=== PATIENT | female | born 1995 | race African-American/Black ===

== ENCOUNTER 2016-07-13 17:12 | Observation (INO) ==
--- NOTE | 2016-07-13 17:46 | Emergency Department Note ---
Arrival - Arrival Chief Complaint: Psychiatric Stated Complaint: [facility] ED Nursing Triage Note: pt drank bleach a very small amount on the 23. pt has had n/v since. pt has been cutting her lt arm with a shaving razor on the th also. when asked if pt want to harm slef pt states "it would not hurt". pt was told to come to er by someone at work due to them seeing cuts to arm. pt states she lost a child when she was 8 months and has been depressed. Mode of Arrival: Ambulatory Limitations: No Limitations Source: Patient, Significant other Time Seen by Provider: 07/13/16 17:42 - History of Present Illness HPI Narrative: This 20-year-old black female presents 4 days after her first episode of cutting herself. This follows 4-5 years of persistent depression, spontaneous sobbing, decreased appetite, and chronic insomnia. The patient has never been treated or hospitalized for depression nor for any suicidal attempts. The patient at one time several years ago felt like taking her own life but currently she is more depressed and angry and wishing to harm someone else rather than herself. She states situations have escalated dramatically over the last several months since losing her child at the eighth month. Beyond her angry depressed emotional outlook she likewise has problems with both auditory and visual hallucinations. This has been going on she states since the very inception of her problem. She denies any significant illicit drug use or alcohol abuse and currently she is on no medications. At the moment she states she does not feel like doing herself any harm including any further cutting. Onset (ago): year(s) (patient presents 5 years post-onset of symptoms) Date of Last Menstrual Period: now Allergies/Adverse Reactions: Allergies Allergy/AdvReac Type Severity Reaction Status Date / Time No Known Allergies Allergy Unverified 12/01/14 15:39 Home Medications: Home Medications Medication Instructions Recorded Confirmed Type No Known Home Medications [No 07/13/16 07/13/16 History Known Home Medications] Review of System - Review of System 12 point system: reviewed and no additional remarkable complaints except as stated - Review of System Constitutional: Present: as per HPI Psychiatric: Present: as per HPI Medical,Surgical,& Family Hx - Family History Family History: Reports;: Family Hypertension - Social History Smoking Status: Never smoker Frequency of Alcohol Use: None Type of Drug Use: None Exam Physical Examination: GENERAL: Well developed, well nourished black female in no acute distress. HEENT: Normocephalic. No trauma. Moist mucous membranes. EOMI. PERRLA. NECK: Supple. No adenopathy. CARDIAC: Regular. No murmurs. CHEST: Clear to auscultation. No respiratory distress. ABDOMEN: Soft. Nontender. Active bowel sounds. EXTREMITIES: No trauma. Normal ROM. No pedal edema. SKIN: No diaphoresis. No rash. NEURO: Alert. Oriented 3. Flat affect. I contact avoidance. Motor, sensory , vibratory intact. No focal deficits. Vital Signs: Vital Signs Temperature 97.7 F 07/13/16 17:15 Pulse Rate 95 H 07/13/16 20:01 Respiratory Rate 18 07/13/16 20:01 Blood Pressure 130/79 07/13/16 20:01 O2 Sat by Pulse Oximetry 100 07/13/16 20:01 Course - Reevaluation(s) Reevaluation #1: Discussed with patient the need for [facility] counseling for her depression. Reevaluation #2: After working through arrangements with [facility] the patient's family did not want to go to [place] and in fact they wanted to go home. They were informed that medically legally that would not be possible and the patient would have to be admitted and observed in the ICU. Ultimately they resolved to have her admitted here for further consultation with [facility] when a bed is available. - Consultations Consultation #1: Discussed with [facility] counselors who felt the patient badly needed hospitalization; however, they did not have a female bed and advised contacting [facility] in [place]. Consultation #2: Discussed with Dr. Dong, hospitalist, who will admit for further evaluation treatment. Results - Labs CBC & BMP: 07/13/16 17:40 07/13/16 17:40 Labs: I have reviewed the laboratory and noted the gross normalcy excepting for the depressed potassium - Diagnostic Findings Procedure: Chest x-ray: image reviewed by me, report reviewed by me (normal chest) Disposition Clinical Impression: severe depression Case discussed with: patient, patient's family Condition: Guarded Time of Disposition: 21:59
[2016-07-13 18:01] LABS: Basophils % 0.3 % (0.0-0.8); Eosinophils # 0.1 10*3/uL (0.0-0.87); Eosinophils % 0.6 % (0.00-10.9); Hematocrit 40.3 VOL% (35.7-47.0); Hemoglobin 13.8 GM/DL (12.0-16.0); Immature Granulocytes % 0.3 %; Immature Granulocytes Absolute 0.03 #; Lymphocytes # 2.9 10*3/uL (1.4-4.0); Lymphocytes % 24.7 % (21.3-54.2); Mean Corpuscular HGB Conc 34.2 GM/DL (32-36); Mean Corpuscular Hemoglobin 30 PG (27-34); Mean Corpuscular Volume 88.6 FL (87-102); Mean Platelet Volume 9.6 FL (9.6-12.0); Monocytes # 0.8 10*3/uL (0.11-0.8); Monocytes % 6.6 % (1.7-12.7); Neutrophils # 7.9 10*3/uL (1.4-7.4); Neutrophils % 67.5 % (38.7-73.9); Platelet Count 251 T/CUMM (130-400); Red Blood Count 4.55 MC/CUMM (3.8-5.5); Red Cell Distribution Width 11.9 % (9.3-17.3); White Blood Count 11.7 T/CUMM (4-12)
[2016-07-13 18:13] LABS: Barbiturates Screen,Urine Negative (Negative); Benzodiazepines Screen,Urine Negative (Negative); Cannabinoid Screen,Urine Negative (Negative); Opiate Screen,Urine Negative (Negative); Phencyclidine Screen,Urine Negative (Negative)
[2016-07-13 18:28] LABS: Alanine Aminotransferase 16 U/L (13-56); Alkaline Phosphatase 78 U/L (45-117); Aspartate Amino Transferase 8 U/L (0-37); Blood Urea Nitrogen 6 MG/DL (7-18); Calcium 9.4 MG/DL (8.5-10.1); Glucose 100 MG/DL (74-106); Potassium 3.1 MMOL/L (3.5-5.1); Sodium 143 MMOL/L (136-145); Total Protein 7.8 G/DL (6.4-8.3)
[2016-07-13] MEDS ORDERED: POTASSIUM BICARB EFFERVESCENT 25 MEQ TABLET PO ONE ×2 (18:56→19:04)
--- NOTE | 2016-07-13 19:12 | XRay Report ---
Exam: Chest 2 views Date: July 13, 2016 at 6:37 PM Comparison: None Reason: Shortness of breath Findings: The cardiac silhouette is normal in size. No focal consolidation, pneumothorax or pleural effusion is identified. No acute osseous process is seen. Impression: No acute cardiopulmonary process is identified. PROCEDURE INTERPRETED AT [facility] DEPARTMENT OF RADIOLOGY Final Report Signed by: Dr. Edouard Mayberry
[2016-07-13 21:27] LABS: Apearance,Urine CLOUDY (Clear); Bilirubin,Urine Negative (Negative); Blood, Urine Large mg/dL (Negative); Glucose,Urine (UA) Negative (Negative); Ketones,Urine 80 mg/dL (Negative); Mucus,Urine Many /LPF (Occasional); Nitrite,Urine Negative (Negative); Protein,Urine 100 MG/DL; RBC,Urine 862 /HPF (0-4); Squamous Epithelial Cell,Urine Occasional /HPF (0-10); Urine Color Dark yellow (Yellow); Urine Specific Gravity 1.033 (1.001-1.035); WBC,Urine 25 /HPF (0-6)
--- NOTE | 2016-07-13 22:27 | Hospitalist History & Physical ---
Assessment and Plan (1) Self mutilating behavior Status: Acute Current Visit: Yes (2) Depression Status: Acute Current Visit: Yes (3) Auditory hallucinations Status: Acute Current Visit: Yes (4) Visual hallucination Status: Acute Current Visit: Yes (5) Suicidal ideation Status: Acute Current Visit: Yes (6) Urinary tract infection Status: Acute Assessment and plan: Plan for this patient. We will admit her with close 1 on 1 observation. Consult social media analyst and have [place] reevaluate her tomorrow. Current Visit: No History of Present Illness Chief complaint: suicidal ideation History of present illness: Ms. Taylor is a 20 year old female who claims no past medical history presents to our ER [facility]. Apparently patient deals with stress by cutting herself. She uses her left forearm. It appears that she is cut herself many times. Apparently at work somebody had noticed her arm and asked that she needed to talk with somebody. She said that she thought she did. And they've recommended that she be brought up to the nearest hospital. Patient was seen by [facility] and they recommended hospitalization for this patient. They currently do not have any beds and there was a bit secured at site [place] the patient and family refused to go there. According to the ER H&P patient at one time felt like taking her own life but currently he is more depressed and angry wishing to harm someone else rather than herself. She had told them that the situation have escalated dramatically over the last several months after losing her child and eighth month of . She likewise has problems with both on and visual hallucinations. She is currently on no medications and denies any alcohol or drug abuse. Home Medications Medication Instructions Recorded Confirmed Type No Known Home Medications [No 07/13/16 07/13/16 History Known Home Medications] Allergies Allergy/AdvReac Type Severity Reaction Status Date / Time No Known Allergies Allergy Unverified 12/01/14 15:39 Medical,Surgical,& Family Hx - Medical History Psychological: History of: Psychiatric Problems - Surgical History Additional Surgical History: None - Family History Family History: Reports;: Family Hypertension - Social History Smoking Status: Never smoker Frequency of Alcohol Use: None Type of Drug Use: None 12 point system: reviewed and no additional remarkable complaints except as stated Exam - Constitutional Vitals: Period Temp Pulse Resp BP Sys/Palmer Pulse Ox Last 24 Hr 97.7 F 62-95 16-18 111-139/72-90 94-100 General appearance: over weight - Head Head exam: Present: normal inspection - Eye Eye exam: Present: EOMI Pupils: Present: CAMILO - ENT ENT exam: Present: normal exam - Neck Neck exam: Present: normal inspection - Respiratory Respiratory exam: Present: clear to auscultation bilaterally - Cardiovascular Cardiovascular exam: Present: regular rate and rhythm - GI/Abdominal GI/Abdominal exam: Present: normal bowel sounds - Extremities Exam Extremities exam: Present: other (she has multiple cuts on her forearm) - Back Exam Back exam: Present: normal inspection Results - Labs CBC & BMP: 07/13/16 17:40 07/13/16 17:40
[2016-07-13] MEDS ORDERED: ZALEPLON 5 MG CAPSULE PO PRN (22:48)
[2016-07-13] MEDS ORDERED: ONDANSETRON 4 MG/2 ML VIAL IV PRN (22:48)
[2016-07-13] MEDS ORDERED: LEVOFLOXACIN 250 MG TABLET PO SCH (23:00)
[2016-07-14 08:43] LABS: Calcium 8.9 MG/DL (8.5-10.1); Osmolality,Calculated 283.8 MOS/KG (273-304); Potassium 3.7 MMOL/L (3.5-5.1)
[2016-07-14] MEDS ORDERED: PANTOPRAZOLE 40 MG TABLET PO SCH (09:00)
--- NOTE | 2016-07-14 09:14 | Hospitalist Progress Note ---
Assessment and Plan (1) Suicidal ideation Status: Acute Assessment and plan: to [facility] when bed available. Until then, continue in ICU with 1;1 obs. Current Visit: Yes (2) Self mutilating behavior Status: Acute Current Visit: Yes (3) Auditory hallucinations Status: Acute Current Visit: Yes (4) Visual hallucination Status: Acute Current Visit: Yes Hospitalist: Subjective Interval history: Ms Taylor is feeling ok this morning. [facility] to return to evaluate if needed- she was not transferred yesterday because they did not have bed. Hoping for transfer today. Nurse does not know when 72hour hold started. Exam - Constitutional Vitals: Period Temp Pulse Resp BP Sys/Palmer Pulse Ox Last 24 Hr 98.2 F-98.7 F 55-94 14-25 103-118/62-101 98-100 General appearance: normal weight, no acute distress - Respiratory Respiratory exam: Present: clear to auscultation bilaterally - Cardiovascular Cardiovascular exam: Present: regular rate and rhythm - GI/Abdominal GI/Abdominal exam: Present: normal bowel sounds, soft. Absent: tenderness - Extremities Exam Extremities exam: Absent: edema Results - Labs CBC & BMP: 07/13/16 17:40 07/14/16 08:01
--- NOTE | 2016-07-14 14:04 | Discharge Summary ---
Hospital Course - Hospital Course Hospital Course: Ms Tayolr was admitted with suicidal ideation and attempt. She was having hallucinations. She is accepted to [facility] today and will be transferred. Diagnosis - Discharge Diagnosis (1) Suicidal ideation Status: Acute (2) Self mutilating behavior Status: Acute (3) Auditory hallucinations Status: Acute (4) Visual hallucination Status: Acute Discharge Plan - Discharge Data Disposition: Disch/Xfer to Psych Hos Condition at Discharge: Stable Discharge Diet: regular diet Activity: resume usual activities as tolerated - Discharge Medications New Levofloxacin Tab [Levaquin Tab] 250 mg PO Q24H #3 tablet - Follow Up or Referral - Forms/Instructions Exam - Constitutional Vitals: Period Temp Pulse Resp BP Sys/Palmer Pulse Ox Last 24 Hr 98.1 F-98.7 F 55-94 14-25 82-118/48-101 98-100 General appearance: normal weight, no acute distress - Head Head exam: Present: normocephalic, atraumatic - Eye Eye exam: Present: EOMI. Absent: scleral icterus - Respiratory Respiratory exam: Present: clear to auscultation bilaterally - Cardiovascular Cardiovascular exam: Present: regular rate and rhythm - GI/Abdominal GI/Abdominal exam: Present: normal bowel sounds, soft. Absent: tenderness Discharge Results Labs on day of discharge: Labs from last 24 hours 07/14/16 08:01 Sodium 144 Potassium 3.7 Chloride 108 H Carbon Dioxide 29 Anion Gap 10.7 BUN 6 L Creatinine 0.60 GFR Calculation 146 BUN/Creatinine Ratio 10.00 Glucose 97 Calculated Osmolality 283.8 Calcium 8.9 Preliminary micro results at discharge 07/13/16 Unknown Urine Culture - Preliminary Urine,Voided No Growth at 12 hours. DS: Provider Date of admission: 07/13/16 22:37 Primary care physician: . No PCP Attending physician on admission: Kalina Garcia MD Consults: 07/13/16 22:52 Consult to Case Mgmt/Social Srvs [CONS] Routine Reason for Case Mgmt/Social Srvs: Psychiatric Management 07/14/16 00:38 Consult to Dietitian [CONS] Routine Reason for Dietitian: Diet Instruction Discharging clinician: Kalina Garcia MD
[2016-07-14 20:14] VITALS: BP 100/65
== END 2016-07-14 20:25 ==
LOC: N.EDINP 17:12 → N.ED 17:12 → N.CC 23:13
PROVIDERS: ADMIT Internal Medicine; ATTEND Internal Medicine

== ENCOUNTER 2021-04-03 03:14 | Inpatient (IN) ==
[2021-04-03 04:01] LABS: Basophils % 0.2 % (0.0-0.8); Eosinophils # 0.1 10*3/uL (0.0-0.87); Hematocrit 28.9 VOL% (35.7-47.0); Hemoglobin 9.3 GM/DL (12.0-16.0); Immature Granulocytes % 1.1 %; Immature Granulocytes Absolute 0.09 #; Lymphocytes # 1.9 10*3/uL (1.4-4.0); Lymphocytes % 22.6 % (21.3-54.2); Mean Corpuscular HGB Conc 32.2 GM/DL (32-36); Mean Corpuscular Volume 88.1 FL (87-102); Mean Platelet Volume 9.6 FL (9.6-12.0); Monocytes % 11.1 % (1.7-12.7); NRBC # 0.02 10*3/uL; Platelet Count 167 T/CUMM (130-400); Red Blood Count 3.28 MC/CUMM (3.8-5.5); Red Cell Distribution Width 13.1 % (9.3-17.3); White Blood Count 8.2 T/CUMM (4-12)
[2021-04-03] MEDS: LACTATED RINGERS 1,000 ML IV SCH ×3 (05:17→16:13)
[2021-04-03] MEDS ORDERED: CITRIC ACID/SODIUM CITRATE 30 ML UDCUP PO ONE (06:00)
[2021-04-03] MEDS ORDERED: FAMOTIDINE 20 MG/2 ML VIAL IV ONE (06:00)
[2021-04-03] MEDS ORDERED: BUPIVACAINE SPINAL 0.75% 2 ML AMP SPINAL ONE (06:51)
[2021-04-03] MEDS ORDERED: TRANEXAMIC ACID 1,000 MG/10 ML VIAL ONE (07:25)
[2021-04-03] MEDS ORDERED: miSOPROStoL 200 MCG TABLET ONE (07:25)
[2021-04-03] MEDS ORDERED: CARBOPROST TROMETHAMINE 250 MCG/ML AMP IM ONE (07:26)
[2021-04-03] MEDS ORDERED: METHYLERGONOVINE 0.2 MG/1 ML AMP ONE (07:26)
[2021-04-03] MEDS ORDERED: OXYTOCIN/LR 20 UNIT/1,000 ML BAG IV ONE ×3 (07:27→08:49)
[2021-04-03] MEDS ORDERED: ceFAZolin 3,000 MG in SYRINGE 15 EACH IV ONE (07:30)
[2021-04-03] MEDS ORDERED: PHENYLEPHRINE 1 MG/10 ML SYRINGE IV ONE (07:49)
[2021-04-03] MEDS ORDERED: ONDANSETRON 4 MG/2 ML VIAL ONE (07:50)
[2021-04-03] MEDS ORDERED: LACTATED RINGERS 1,000 ML IV ONE (07:50)
[2021-04-03] MEDS ORDERED: KETOROLAC 30 MG/1 ML VIAL ONE (08:15)
[2021-04-03] MEDS ORDERED: ACETAMINOPHEN INJ 1,000 MG/100 ML VIAL IV ONE (08:15)
[2021-04-03 08:28] LABS: Cord Arterial Blood HCO3 20.9 MMOL/L
[2021-04-03 08:29] LABS: Cord Venous Blood HCO3 23.7 MMOL/L; Cord Venous Blood PCO2 41.1 MMHG; Cord Venous Blood PO2 26.1 MMHG
[2021-04-03 08:32] LABS: Bacteria,Urine Occasional /HPF (Few); Bilirubin,Urine Negative (Negative); Blood, Urine Negative (Negative); Glucose,Urine (UA) Negative (Negative); Ketones,Urine Negative (Negative); Mucus,Urine Occasional /LPF (Occasional); Nitrite,Urine Negative (Negative); Protein,Urine Negative; Squamous Epithelial Cell,Urine Occasional /HPF (0-10); Urine Appearance CLEAR (Clear); Urine Color Straw (Yellow); Urine Specific Gravity 1.008 (1.001-1.035); Urine Urobilinogen < 2.0 EU/DL (0.2-1.0)
[2021-04-03 08:33] LABS: Cord Venous Blood HCO3 24.2 MMOL/L; Cord Venous Blood PCO2 43.7 MMHG; Cord Venous Blood PO2 24.3 MMHG
[2021-04-03] MEDS ORDERED: RHO(D) IMMUNE GLOBULIN 300 MCG SYRINGE IM ONE (08:49)
[2021-04-03] MEDS ORDERED: SIMETHICONE CHEW 80 MG TABLET PO PRN (08:49)
[2021-04-03] MEDS ORDERED: ONDANSETRON 4 MG/2 ML VIAL IV PRN (08:49)
[2021-04-03] MEDS ORDERED: ACETAMINOPHEN 325 MG TABLET PO PRN (08:49)
[2021-04-03] MEDS ORDERED: LACTATED RINGERS 1,000 ML IV SCH (09:00)
[2021-04-03] MEDS: DOCUSATE SODIUM 100 MG CAPSULE PO SCH ×2 (10:14→20:29)
[2021-04-03] MEDS: MULTIVITAMIN (PRENATAL) TABLET PO SCH (10:14)
[2021-04-03] MEDS ORDERED: diphenhydrAMINE CAP 25 MG CAPSULE ONE (12:41)
[2021-04-03] MEDS: diphenhydrAMINE CAP 25 MG CAPSULE PO PRN ×2 (12:44→17:18)
[2021-04-03] MEDS: ACETAMINOPHEN 500 MG TABLET PO SCH ×2 (13:57→20:31)
[2021-04-03] MEDS: KETOROLAC 30 MG/1 ML VIAL IV SCH ×2 (14:02→20:29)
[2021-04-03 15:54] LABS: Hematocrit 18.7 VOL% (35.7-47.0); Mean Corpuscular HGB Conc 31.6 GM/DL (32-36); Mean Corpuscular Volume 88.2 FL (87-102); Mean Platelet Volume 10.1 FL (9.6-12.0); Platelet Count 128 T/CUMM (130-400); Red Blood Count 2.12 MC/CUMM (3.8-5.5); White Blood Count 8.8 T/CUMM (4-12)
[2021-04-03 15:55] LABS: Basophils % 0.1 % (0.0-0.8); Eosinophils % 0.5 % (0.00-10.9); Immature Granulocytes % 0.7 %; Immature Granulocytes Absolute 0.06 #; Lymphocytes # 1.4 10*3/uL (1.4-4.0); Lymphocytes % 15.5 % (21.3-54.2); Monocytes % 9.4 % (1.7-12.7); Neutrophils % 73.8 % (38.7-73.9)
[2021-04-03 15:57] LABS: Hemoglobin 5.9 GM/DL (12.0-16.0)
[2021-04-03 17:16] LABS: Hematocrit 26.2 VOL% (35.7-47.0); Hemoglobin 8.3 GM/DL (12.0-16.0)
[2021-04-04] MEDS: KETOROLAC 30 MG/1 ML VIAL IV SCH (02:26)
[2021-04-04] MEDS: ACETAMINOPHEN 500 MG TABLET PO SCH (02:27)
[2021-04-04 06:02] LABS: Basophils % 0.2 % (0.0-0.8); Eosinophils # 0.1 10*3/uL (0.0-0.87); Eosinophils % 0.7 % (0.00-10.9); Hemoglobin 8.6 GM/DL (12.0-16.0); Immature Granulocytes % 0.6 %; Immature Granulocytes Absolute 0.06 #; Lymphocytes # 1.8 10*3/uL (1.4-4.0); Lymphocytes % 16.8 % (21.3-54.2); Mean Corpuscular HGB Conc 33.1 GM/DL (32-36); Mean Corpuscular Volume 86.7 FL (87-102); Mean Platelet Volume 10.4 FL (9.6-12.0); Monocytes % 9.4 % (1.7-12.7); Neutrophils % 72.3 % (38.7-73.9); Platelet Count 154 T/CUMM (130-400); Red Cell Distribution Width 13.1 % (9.3-17.3); White Blood Count 10.6 T/CUMM (4-12)
[2021-04-04] MEDS: MULTIVITAMIN (PRENATAL) TABLET PO SCH (08:53)
[2021-04-04] MEDS: DOCUSATE SODIUM 100 MG CAPSULE PO SCH ×2 (08:53→20:53)
[2021-04-04] MEDS: MAGNESIUM HYDROXIDE SUSP 30 ML UDCUP PO PRN (08:53)
[2021-04-04] MEDS: IBUPROFEN 800 MG TABLET PO PRN (12:48)
[2021-04-04] MEDS: oxyCODONE/ACETAMINOPHEN 5-325 MG TABLET PO PRN (20:55)
[2021-04-05] MEDS: IBUPROFEN 800 MG TABLET PO PRN ×3 (03:36→18:36)
[2021-04-05] MEDS: oxyCODONE/ACETAMINOPHEN 5-325 MG TABLET PO PRN ×2 (03:36→20:20)
[2021-04-05] MEDS: MAGNESIUM HYDROXIDE SUSP 30 ML UDCUP PO PRN ×2 (09:10→20:24)
[2021-04-05] MEDS: MULTIVITAMIN (PRENATAL) TABLET PO SCH (09:10)
[2021-04-05] MEDS: DOCUSATE SODIUM 100 MG CAPSULE PO SCH ×2 (09:10→20:20)
[2021-04-05] MEDS: FERROUS SULFATE 325 MG TABLET PO SCH (20:20)
[2021-04-06] MEDS: IBUPROFEN 800 MG TABLET PO PRN (04:01)
[2021-04-06] MEDS: FERROUS SULFATE 325 MG TABLET PO SCH (08:01)
[2021-04-06] MEDS: DOCUSATE SODIUM 100 MG CAPSULE PO SCH (08:32)
[2021-04-06] MEDS: MULTIVITAMIN (PRENATAL) TABLET PO SCH (08:32)
[2021-04-06 09:11] VITALS: BP 127/66
== END 2021-04-06 12:20 | disposition home or self-care (01) | DRG 540 ==
LOC: N.LD 03:14 → N.OB 11:28
PROVIDERS: ADMIT Obstetrics & Gynecology; ATTEND Obstetrics & Gynecology
PROC: LDCSECT (ICD-10-PCS; 2021-04-03 07:20)

== ENCOUNTER 2022-06-23 04:50 | Inpatient (IN) ==
[2022-06-23] MEDS ORDERED: CITRIC ACID/SODIUM CITRATE 30 ML UDCUP PO ONE (05:07)
[2022-06-23] MEDS ORDERED: LACTATED RINGERS 500 ML IV PRN (05:07)
[2022-06-23] MEDS ORDERED: TRANEXAMIC ACID 1,000 MG in SODIUM CHLORIDE 0.9% 100 ML IV PRN (05:07)
[2022-06-23] MEDS ORDERED: METHYLERGONOVINE 0.2 MG/1 ML AMP IM PRN (05:07)
[2022-06-23] MEDS ORDERED: CARBOPROST TROMETHAMINE 250 MCG/ML AMP IM PRN (05:07)
[2022-06-23] MEDS ORDERED: miSOPROStoL 200 MCG TABLET RECTAL PRN (05:07)
[2022-06-23] MEDS ORDERED: FAMOTIDINE 20 MG/2 ML VIAL IV ONE (05:07)
[2022-06-23] MEDS ORDERED: OXYTOCIN/LR 20 UNIT/1,000 ML BAG IV ONE ×3 (05:07→12:10)
[2022-06-23] MEDS ORDERED: ONDANSETRON 4 MG/2 ML VIAL IV PRN ×2 (05:07→12:10)
[2022-06-23 05:41] LABS: Basophils % 0.3 % (0.0-0.8); Eosinophils # 0.3 10*3/uL (0.0-0.87); Eosinophils % 3.4 % (0.00-10.9); Hemoglobin 8.8 GM/DL (12.0-16.0); Immature Granulocytes % 0.4 %; Immature Granulocytes Absolute 0.03 #; Lymphocytes # 1.8 10*3/uL (1.4-4.0); Mean Corpuscular HGB Conc 32.6 GM/DL (32-36); Mean Corpuscular Volume 85.4 FL (87-102); Mean Platelet Volume 10.4 FL (9.6-12.0); Monocytes # 0.8 10*3/uL (0.11-0.8); Monocytes % 9.9 % (1.7-12.7); Platelet Count 175 T/CUMM (130-400); Red Blood Count 3.16 MC/CUMM (3.8-5.5); Red Cell Distribution Width 14.1 % (9.3-17.3)
[2022-06-23] MEDS ORDERED: LACTATED RINGERS 1,000 ML IV ONE (05:47)
[2022-06-23] MEDS ORDERED: buprenorphine HCL 0.3 MG/ML VIAL ONE (06:45)
[2022-06-23] MEDS: LACTATED RINGERS 1,000 ML IV PRN ×2 (06:54→20:00)
[2022-06-23 06:55] LABS: Hepatitis B Surface Ab Result Non-Reactive (NonReactive)
[2022-06-23] MEDS ORDERED: ceFAZolin 3,000 MG in SYRINGE 1 EACH IV ONE (07:00)
[2022-06-23] MEDS ORDERED: ONDANSETRON 4 MG/2 ML VIAL ONE (07:09)
[2022-06-23] MEDS ORDERED: KETOROLAC 30 MG/1 ML VIAL ONE (07:09)
[2022-06-23] MEDS ORDERED: METOCLOPRAMIDE 10 MG/2 ML VIAL ONE (07:10)
[2022-06-23] MEDS ORDERED: PHENYLEPHRINE 1 MG/10 ML SYRINGE IV ONE (07:44)
[2022-06-23] MEDS ORDERED: MIDAZOLAM 2 MG/2 ML VIAL ONE (07:57)
[2022-06-23 08:11] LABS: Mucus,Urine Occasional /LPF (Occasional); Protein,Urine 7.5 mg/dL (Negative); RBC,Urine <1 /HPF (0-4); Squamous Epithelial Cell,Urine Occasional /HPF (0-10); Urine Appearance Clear (Clear); Urine Color Yellow (Yellow); Urine pH 7.5 (4.5-8.0)
[2022-06-23 08:12] LABS: Bilirubin,Urine Negative (Negative); Blood, Urine Negative (Negative); Glucose,Urine (UA) Negative (Negative); Ketones,Urine Negative (Negative); Nitrite,Urine Negative (Negative)
[2022-06-23 08:14] LABS: Cord Arterial Blood HCO3 21.9 MMOL/L
[2022-06-23 08:18] LABS: Cord Venous Blood HCO3 22.5 MMOL/L; Cord Venous Blood PO2 26.9
[2022-06-23] MEDS ORDERED: hydrOXYzine HCL 25 MG/1 ML VIAL IM PRN (09:03)
[2022-06-23] MEDS ORDERED: HYDROmorphone 1 MG/1 ML SYRINGE IV PRN (09:03)
[2022-06-23] MEDS ORDERED: diphenhydrAMINE 50 MG/1 ML VIAL IV PRN (09:03)
[2022-06-23] MEDS: ACETAMINOPHEN 500 MG TABLET PO SCH ×3 (11:53→23:10)
[2022-06-23] MEDS ORDERED: WITCH HAZEL PADS 100/JAR TOP PRN (12:10)
[2022-06-23] MEDS ORDERED: DIPH/TET/ACEL PERT BOOSTER VACCINE 0.5 ML VIAL IM ONE (12:10)
[2022-06-23] MEDS ORDERED: BISACODYL 10 MG SUPP RECTAL PRN (12:10)
[2022-06-23] MEDS ORDERED: oxyCODONE/ACETAMINOPHEN 5-325 MG TABLET PO PRN ×2 (12:10)
[2022-06-23] MEDS ORDERED: ACETAMINOPHEN 325 MG TABLET PO PRN (12:10)
[2022-06-23] MEDS ORDERED: MEASLES/MUMPS/RUBELLA VACCINE 0.5 ML VIAL SUBCUT ONE (12:10)
[2022-06-23] MEDS ORDERED: HYDROCORTISONE 2.5% RECTAL CREAM 30 GM TUBE TOP PRN (12:10)
[2022-06-23] MEDS ORDERED: RHO(D) IMMUNE GLOBULIN 300 MCG SYRINGE IM ONE (12:10)
[2022-06-23] MEDS ORDERED: LANOLIN 50% CREAM 0.3 OZ TUBE TOP PRN (12:10)
[2022-06-23] MEDS ORDERED: BENZOCAINE 20%/MENTHOL 0.5% SPRAY 56 GM CAN TOP PRN (12:10)
[2022-06-23] MEDS: KETOROLAC 30 MG/1 ML VIAL IV SCH ×2 (13:52→20:26)
[2022-06-23] MEDS: ceFAZolin 2,000 MG/50 ML DUPLEX IV SCH ×2 (16:09→23:57)
[2022-06-23] MEDS: DOCUSATE SODIUM 100 MG CAPSULE PO SCH ×2 (20:28→21:45)
[2022-06-24] MEDS: KETOROLAC 30 MG/1 ML VIAL IV SCH (02:15)
[2022-06-24 06:10] LABS: Basophils % 0.3 % (0.0-0.8); Eosinophils # 0.3 10*3/uL (0.0-0.87); Eosinophils % 3.8 % (0.00-10.9); Hematocrit 27.3 VOL% (35.7-47.0); Hemoglobin 8.8 GM/DL (12.0-16.0); Immature Granulocytes % 0.5 %; Immature Granulocytes Absolute 0.04 #; Lymphocytes # 1.8 10*3/uL (1.4-4.0); Lymphocytes % 22.9 % (21.3-54.2); Mean Corpuscular HGB Conc 32.2 GM/DL (32-36); Mean Corpuscular Volume 86.4 FL (87-102); Mean Platelet Volume 10.9 FL (9.6-12.0); Monocytes # 0.7 10*3/uL (0.11-0.8); Neutrophils % 63.5 % (38.7-73.9); Platelet Count 162 T/CUMM (130-400); Red Blood Count 3.16 MC/CUMM (3.8-5.5); Red Cell Distribution Width 14.1 % (9.3-17.3)
[2022-06-24] MEDS: ACETAMINOPHEN 500 MG TABLET PO SCH (06:16)
[2022-06-24] MEDS: IBUPROFEN 800 MG TABLET PO PRN ×2 (09:29→20:00)
[2022-06-24] MEDS: DOCUSATE SODIUM 100 MG CAPSULE PO SCH ×2 (09:29→21:58)
[2022-06-25 07:41] VITALS: BP 124/74
[2022-06-25] MEDS: DOCUSATE SODIUM 100 MG CAPSULE PO SCH (09:44)
[2022-06-25] MEDS: IBUPROFEN 800 MG TABLET PO PRN (09:45)
== END 2022-06-25 16:55 | disposition home or self-care (01) | DRG 540 ==
LOC: N.LD 04:50 → N.OB 12:00
PROVIDERS: ADMIT Specialist; ATTEND Specialist
PROC: LDCSECT (ICD-10-PCS; 2022-06-23 07:30)